=== PATIENT | male | born 1980 | race Two or more races ===

== ENCOUNTER 2024-08-14 23:58 | Emergency (ER) | payer OTHER ==
[~2024-08-14] VITALS: Ht 182.9 cm; Wt 90.7 kg
[2024-08-15 03:36] LABS: HEMATOCRIT 42.5 % (39.0-48.0); HEMOGLOBIN 14.3 g/dL (13-16.00); MEAN CELL VOLUME 92.1 fL (80.0-100.00); MEAN CORPUSCULAR HGB CONC 33.7 g/dl (32.0-36.0); PLATELET COUNT 273 K/uL (150-450); RED BLOOD COUNT 4.61 M/uL (4.00-6.00); RED CELL DISTRIBUTION WIDTH 12.9 % (11.5-14.5)
[2024-08-15 03:50] LABS: CALCIUM 8.9 mg/dL (8.5-10.1); CREATININE SERUM 1.18 mg/dL (0.70-1.30); GFR 68.03; POTASSIUM 4.16 mEq/L (3.5-5.1)
[2024-08-15] MEDS ORDERED: KETOROLAC TROMETHAMINE 60 MG VIAL IM STA (03:51)
[2024-08-15] MEDS ORDERED: KETOROLAC TROMETHAMINE 60 MG VIAL IM ONE (03:56)
[2024-08-15 04:03] LABS: URINE APPEARANCE Clear; URINE BILIRRUBIN Negative (NEGATIVE); URINE BLOOD Negative; URINE COLOR Yellow; URINE GLUCOSE Negative (NEGATIVE); URINE KETONE Negative (NEGATIVE); URINE LEUKOCYTE Negative; URINE NITRATE Negative; URINE PROTEIN Negative (NEGATIVE); URINE UROBILINOGEN 0.2 E.U./dl
[2024-08-15 04:04] LABS: URINE BACTERIA 4.8 uL (0.0-1933); URINE EPITHELIAL CELLS 0.1 uL (0.0-38.8); URINE RBC 0.2 uL (0.0-20.8); URINE WBC 2.3 uL (0.0-23.2)
[2024-08-15] MEDS ORDERED: LEVOFLOXACIN500 MG PO (06:13)
[2024-08-15] MEDS ORDERED: KETO10TA2 PO (06:13)
== END 2024-08-15 06:18 ==
LOC: ER 08-15 00:01
PROVIDERS: General Practice
DX: N50.811 Right testicular pain (principal); R42 Dizziness and giddiness; Z87.438 Personal history of other diseases of male genital organs